=== PATIENT | male | born 1945 | race Caucasian/White ===

== ENCOUNTER 2024-09-08 11:34 | Emergency (ER) | payer OTHER, MEDICARE ==
[2024-09-08] MEDS ORDERED: NA CHLORIDE 0.9% 500 ML ONE (12:05)
[2024-09-08] MEDS ORDERED: MORPHINE 2 MG/ML SYR ONE ×3 (12:05→15:15)
--- NOTE | 2024-09-08 12:32 | RAD REPORT ---
EXAMINATION: US RIGHT LOWER EXTREMITY VENOUS DOPPLER CLINICAL INDICATION: post op;Pain;Swelling RIGHT TECHNIQUE: Complete bilateral duplex sonography of the RIGHT lower extremity veins was performed. The examination included compression for vein patency, color Doppler imaging and flow augmentation in response to distal compression of the distal external iliac, common femoral, femoral, popliteal, tibi al, and great and small saphenous veins. COMPARISON: No prior exam. FINDINGS: Duplex sonography testing of the veins of the RIGHT lower extremity was performed. Color flow imaging shows all veins to be compressible with [id number] color filling. Pulsatile and phasic flow is present within all lower extremity deep and superficial veins examined. IMPRESSION: There is no deep vein or superficial vein thrombosis.
--- NOTE | 2024-09-08 12:32 | RAD REPORT ---
EXAMINATION: ONE VIEW CHEST XR CLINICAL INDICATION: hypotension, recent knee surgery TECHNIQUE: Frontal chest projection is submitted. Examination is limited by patient positioning and t echnique. COMPARISON: No prior exam. FINDINGS: The lungs are well inflated and clear. The heart is upper limit of normal in size. No displaced fract ures identified. IMPRESSION: No acute intrathoracic abnormalities.
--- NOTE | 2024-09-08 12:33 | RAD REPORT ---
EXAMINATION: XR RIGHT KNEE CLINICAL INDICATION: Male, 79 years old. surgery 3 weeks ago;Pain;Swelling TECHNIQUE: Multiple views of the right knee were obtained. COMPARISON: No prior exam. FINDINGS: A large joint effusion is present particularly in the suprapatellar joint space. Sterility of this effusion is indeterminant. Left total knee arthroplasty noted. No hardware loosening.
[2024-09-08] MEDS ORDERED: LIDOCAINE 1% 20 ML MDV ONE (13:06)
[2024-09-08 13:16] LABS: Absolute Basophils 0.1 K/uL (0-0.5); Absolute Eosinophils 0.4 K/uL (0-0.5); Absolute Lymphocytes (CBC) 0.9 K/uL (0.7-4.9); Absolute Monocytes 2.3 K/uL (0.1-1.3); Absolute Neutrophil 9.5 K/uL (1.8-8.0); Basophils % 0.6 % (0-1.3); Eosinophils % 2.7 % (0-4.4); Hematocrit 25.2 % (39.6-49.0); Hemoglobin 8.4 g/dL (13.6-17.9); Lymphocytes % 6.9 % (15.3-44.8); MCH 32.1 pg (27.0-35.0); MCHC 33.3 g/dL (32.0-36.0); MCV 96.4 fL (80-100); MPV 7.5 fL (7.6-11.3); Monocytes % 17.7 % (3.3-12.3); Neutrophils % 72.1 % (41.7-73.7); Platelets 403 thou/uL (152-406); RBC Red Blood Cell Count 2.62 M/uL (4.33-5.43); Red Cell Distribution Width 14.6 % (12.1-15.2)
[2024-09-08 13:23] LABS: PT Prothrombin Time 14.4 SECONDS (10-13.0); PTT, Activated Partial Thromb 31.8 SECONDS (27.2-37.4); Protime INR 1.28
[2024-09-08 14:17] LABS: ALT/SGPT 15 U/L (16-61); Albumin 2.9 g/dL (3.4-5.0); Albumin/Globulin Ratio 0.9 (1.1-1.8); Alkaline Phosphatase 132 U/L (45-117); Anion Gap 9.7 mEq/L (5.0-15.0); BUN Blood Urea Nitrogen 22 mg/dL (7-18); Bicarbonate 25 mEq/L (21-32); Bilirubin Total 0.6 mg/dL (0.2-1.0); Globulin 3.4 g/dL (2.3-3.5); Glomerular Filtration Rate 67 ml/min (=/>90); Glucose Level 230 mg/dL (74-106); Potassium 3.7 mEq/L (3.5-5.1); Protein, Total 6.3 g/dL (6.4-8.2); Sodium Level 138 mEq/L (136-145)
[2024-09-08 14:18] LABS: AST/SGOT < 10 U/L (15-37)
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
--- NOTE | 2024-09-08 14:47 | EDPHYS ---
Physician Documentation [facility] Name: Juarez Diaz Age: 79 yrs Sex: Male : 1945 Arrival Date: 09/08/2024 Time: 11:34 Bed 14 Private MD: ED Physician Norman Baez HPI: 09/08 11:47 This 79 yrs old Male presents to ER via EMS with complaints of Knee Pain. rn 11:47 The patient presents with pain. Onset: The symptoms/episode began/occurred today. rn Severity of symptoms: At their worst the symptoms were moderate, in the emergency department the symptoms are unchanged. Patient reports had knee replacement surgery 3 weeks ago in [place], has been doing rehab and is ambulatory with walker, today had worsening pain in the right knee and was feeling dizzy and lightheaded during rehab. They laid him down and reported to EMS that he was hypotensive briefly. No syncope. No trauma. Patient denies fever or chills. Patient reports the right knee has been swollen like this since the surgery and has been having on and off pain since the surgery but pain did worsen today during rehab and exercise.. Historical: - Allergies: 11:41 No Known Allergies; ll1 - PMHx: 11:41 Hypertensive disorder; Diabetes mellitus; ll1 - PSHx: 11:41 R knee replacement; ll1 - Immunization history:: Adult Immunizations up to date. - Infectious Disease History:: Denies. - Social history:: Smoking status: Patient denies any tobacco usage or history of. - Family history:: not pertinent. - Hospitalizations: : No recent hospitalization is reported. ROS: 11:47 Constitutional: Negative for fever, positive for chills Cardiovascular: Negative for rn chest pain, palpitations, and edema, Respiratory: Negative for shortness of breath, cough, wheezing, and pleuritic chest pain, Abdomen/GI: Negative for abdominal pain, nausea, vomiting, diarrhea, and constipation, MS/Extremity: Positive for right knee pain and swelling Skin: Negative for injury Neuro: Negative for headache, weakness, numbness, tingling, and seizure, Exam: 11:47 Constitutional: This is a well developed, well nourished patient who is awake, alert, rn appears in pain Cardiovascular: Regular rate and rhythm. No pulse deficits. Respiratory: No increased work of breathing, no retractions or nasal flaring. Abdomen/GI: Soft, non-tender MS/ Extremity: Pulses equal, no cyanosis. Neurovascular intact. Moderate swelling right knee, wound is clean dry and intact. Mild warmth. Painful range of motion of right knee, currently propped up with pillow Neuro: Awake and alert, GCS 15, oriented to person, place, time, and situation. 11:51 ECG was reviewed by the Attending Physician. rn Vital Signs: 11:40 BP 123 / 58; Pulse 75; Resp 18; Temp 97.7; Pulse Ox 100% ; Weight 92.99 kg; Height 6 db ft. 0 in. ; 13:00 BP 140 / 68; Pulse 95; Resp 16; Pulse Ox 100% ; db 14:00 BP 134 / 73; Pulse 92; Resp 16; Pulse Ox 97% on R/A; db 15:30 BP 125 / 72; Pulse 92; Resp 17; Pulse Ox 100% ; db 16:00 BP 134 / 80; Pulse 90; Resp 16; Pulse Ox 100% on R/A; db 11:40 Body Mass Index 27.80 (92.99 kg, 182.88 cm) db Procedures: 16:06 Joint Treatment: Aspiration of right knee using 22g needle. Removed 1 ml's of bloody rn fluid, Specimen sent to lab. Dressed with band aid, Patient tolerated well. Performed after lidocaine injection for anesthesia. MDM: 11:40 Medical Screening Exam initiated rn 14:45 Differential diagnosis: Postoperative infection, septic knee, vasovagal episode. Data rn reviewed: vital signs, nurses notes, lab test result(s), radiologic studies, plain films, ultrasound, and as a result, I will admit patient. Consideration of Admission/Observation Escalation of care including admission/observation considered. Counseling: I had a detailed discussion with the patient and/or guardian regarding the historical points, exam findings, and any diagnostic results supporting the discharge/admit diagnosis, lab results, radiology results, the need for further work-up and treatment in the hospital, the need to transfer to another facility. ED course: Attempting transfer to his hospital that he had surgery and 3 weeks ago, [facility], Dr. Carlyle Oconnor. Waiting for callback. 09/08 11:45 Order name: Blood Culture Adult (2) rn 09/08 11:45 Order name: CBC with Diff; Complete Time: 13:32 rn 09/08 11:45 Order name: CMP; Complete Time: 14:47 rn 09/08 11:45 Order name: Lactate w/ 2H reflex if indic.; Complete Time: 14:18 rn 09/08 11:45 Order name: Protime (+inr); Complete Time: 13:32 rn 09/08 11:45 Order name: Ptt, Activated; Complete Time: 13:32 rn 09/08 11:46 Order name: CRP; Complete Time: 14:47 rn 09/08 13:31 Order name: Fluid Cell Count,Body; Complete Time: 16:05 rn 09/08 13:32 Order name: Body Fluid Culture rn 09/08 14:05 Order name: Ghost Lactate-NO COLLECT Timer; Complete Time: 16:05 EDMS 09/08 11:45 Order name: Chest Single View XRAY; Complete Time: 12:35 rn 09/08 11:45 Order name: XRAY Knee RIGHT 3 view; Complete Time: 12:35 rn 09/08 11:50 Order name: Extremity Venous Uni Ltd US; Complete Time: 12:35 rn 09/08 11:45 Order name: Accucheck; Complete Time: 13:15 rn 09/08 11:45 Order name: Cardiac monitoring; Complete Time: 13:15 rn 09/08 11:45 Order name: EKG - Nurse/Tech; Complete Time: 11:57 rn 09/08 11:45 Order name: IV Saline Lock - Large Bore; Complete Time: 13:15 rn 06 11:45 Order name: Labs collected and sent; Complete Time: 13:15 rn 09/08 11:45 Order name: O2 Per Protocol; Complete Time: 11:57 rn 09/08 11:45 Order name: O2 Sat Monitoring; Complete Time: 11:57 rn 09/08 11:45 Order name: Vital Signs; Complete Time: 11:57 rn 06 12:44 Order name: Surgical Consent: consent for right knee aspiration; Complete Time: 13:14 rn 09/08 13:26 Order name: Labs - recollect needed: recollect green top; Complete Time: 13:42 bd EC:51 Rate is 64 beats/min. Rhythm is regular. QRS [place] is Normal. OR interval is normal. QRS rn interval is normal. QT interval is normal. No Q waves. T waves are Normal. No ST changes noted. Clinical impression: Normal ECG. Interpreted by me. Reviewed by me. Administered Medications: 12:30 Drug: morphine IVP or IV 2 mg IVP once over 4 mins Route: IVP; Infused Over: 4 mins; db Site: right wrist; 13:42 Follow up: Response: No adverse reaction; Pain is decreased db 12:40 Drug: NS 0.9% IV 500 ml 500 ml IV at 1 bolus once; to be given as a bolus over 30 db minutes Volume: 500 ml; Route: IV; Rate: 1 bolus; Site: right wrist; 15:26 Follow up: Response: No adverse reaction; IV Status: Completed infusion; IV Intake: db 500ml 13:00 Drug: Lidocaine Infiltration (1 %) 1 vials 5 ml Infiltration once; to bedside {Note: db given to provider.} Volume: 5 ml; Route: Infiltration; 15:26 Follow up: Response: No adverse reaction db 15:15 Drug: morphine IVP or IV 4 mg IVP once over 4 mins Route: IVP; Infused Over: 4 mins; db Site: right wrist; 16:46 Follow up: Response: No adverse reaction; Pain is decreased db 15:20 Drug: vancoMYCIN IVPB 1 grams IVPB once over 2 hrs Route: IVPB; Infused Over: 2 hrs; db Site: right wrist; 16:46 Follow up: Response: No adverse reaction; IV Status: Completed infusion; IV Intake: db 250ml Disposition Summary: 09/08/24 14:46 Transfer Ordered Notes: Transfer Location: [facility] rn Reason: Higher level of care rn Condition: Stable rn Problem: new rn Symptoms: have improved rn Accepting Physician: (09/08/24 16:47) db Diagnosis - Pain in right knee rn - Hypotension, unspecified rn Forms: - Medication Reconciliation Form rn - SBAR form rn Signatures: Dispatcher [employer] EDMS Elaine Castellano Roman, MD MD rn Lewis, Lynsay, RN RN ll1 Nallely Cornell RN RN db Corrections: (The following items were deleted from the chart) 11:46 11:46 BLOOD CULTURE*+BA.LAB.BRZ ordered. EDMS EDMS 11:46 11:46 CBC+H.LAB.BRZ ordered. EDMS EDMS 11:46 11:46 COMPREHENSIVE METABOLIC PANEL+C.LAB.BRZ ordered. EDMS EDMS 11:46 11:46 LACTATE+C.LAB.BRZ ordered. EDMS EDMS 11:46 11:46 PROTIME (+INR)+COAG.LAB.BRZ ordered. EDMS EDMS 11:46 11:46 PTT, ACTIVATED+COAG.LAB.BRZ ordered. EDMS EDMS 11:46 11:46 Chest Single View+RAD.RAD.BRZ ordered. EDMS EDMS 11:46 11:46 Knee Right 3 View+RAD.RAD.BRZ ordered. EDMS EDMS 16:47 14:46 Dr. son db
[2024-09-08] MEDS ORDERED: VANCOMYCIN 1 GM/VIAL ONE (15:15)
[2024-09-08] MEDS ORDERED: NA CHLORIDE 0.9% 250 ML ONE (15:16)
[2024-09-08 15:46] LABS: Body Fluid Source SYNOVIAL; Color of fluid Red (COLORLESS); Tube # SINGLE
[2024-09-08 15:47] LABS: Appearance TURBID (CLEAR); Body Fluid WBC 1250 /mm^3
[2024-09-08 15:48] LABS: Body Fluid Lymphocytes 6 %; Fluid Total Cells Count 100
[2024-09-08 20:44] VITALS: TEMP 97.7
[2024-09-08 20:48] VITALS: O2SAT 100
[2024-09-08 20:49] VITALS: BP 134/80
--- NOTE | 2024-09-10 11:49 | EKG ---
Test Date: 2024-09-08 Test Time: 11:46:24 Business Insurance Agent: LUL MEASUREMENT RESULTS: Intervals: Rate: 64 ID: [id number] QRSD: 78 QT: 428 QTc: 441 [place]: P: 35 ID: [id number] QRS: 52 T: 23 INTERPRETIVE STATEMENTS: Normal sinus rhythm Normal ECG Compared to ECG 02/23/2015 07:50:24 Sinus bradycardia no longer present Electronically Signed On 09-10-24 11:43:52 CDT by Flaco Ceja
== END 2024-09-08 16:47 | disposition short-term general hospital (02) ==
LOC: ER 11:34
DX: M25.561 Pain in right knee (principal); Z96.651 Presence of right artificial knee joint
CPT/HCPCS: 96365; 96361; 93005; 87040 ×2; 87070; 85025; 36415; 89050; 85610; 83605 ×2; 85730; 80053; 86140; 71045; 73562; 93971; 96375; 99285; 20610; J2003; J3370; J2270 ×2; J7050; J7040